=== PATIENT | female | born 1995 | race African-American/Black ===

== ENCOUNTER 2016-07-27 15:21 | Emergency (ER) | payer MEDICAID, OTHER ==
[~2016-07-27] VITALS: Ht 167.6 cm; Wt 140.0 kg
[~2016-07-27 15:21] MED LIST: BEN25 PO
[2016-07-27 15:25] VITALS: Ht 167.6 cm; Wt 140.0 kg
[2016-07-27] MEDS ORDERED: ONDANSETRON 4 MG INJ IV STA (16:36)
[2016-07-27] MEDS ORDERED: SOD CHLORIDE 0.9% 1,000 ML IV STA (16:36)
[2016-07-27 17:08] LABS: ADD UMIC NO; URINE BILIRUBIN (Dip) NEGATIVE (NEGATIVE); URINE BLOOD (Dip) NEGATIVE (NEGATIVE); URINE COLOR LT. YELLOW (YELLOW); URINE GLUCOSE (Dip) NEGATIVE (NEGATIVE); URINE KETONES (Dip) NEGATIVE (NEGATIVE); URINE LEUKOCYTE ESTERASE (Dip) NEGATIVE (NEGATIVE); URINE NITRITE (Dip) NEGATIVE (NEGATIVE); URINE TOTAL PROTEIN (Dip) NEGATIVE (NEGATIVE); URINE UROBILINOGEN (Dip) 0.2 E.U./dL (0.1-1.0)
[2016-07-27 17:09] LABS: BASOPHILS % 0.3 % (0.0-2.0); EOSINOPHILS % 0.4 % (0.0-7.0); HEMATOCRIT 37.1 % (37.0-47.0); HEMOGLOBIN 12.2 g/dl (12.0-16.0); LYMPHOCYTES # 1.7 10^3/ul (0.8-2.9); LYMPHOCYTES % 22.5 % (15.0-51.0); MEAN CORPUSCULAR HEMOGLOBIN 27.2 pg (29.0-33.0); MEAN CORPUSCULAR HGB CONC 32.8 g/dl (32.0-37.0); MEAN CORPUSCULAR VOLUME 82.8 fl (82.0-101.0); MONOCYTE # 0.5 10^3/ul (0.3-0.9); MONOCYTES % 6.5 % (0.0-11.0); NEUTROPHIL # 5.3 10^3/ul (1.6-7.5); NEUTROPHILS % 70.3 % (39.0-77.0); PLATELET COUNT 294 10^3/UL (140-440); RED BLOOD COUNT 4.49 10^6/ul (4.20-5.40); UNCORRECTED WBC 7.6 10^3/ul (4.8-10.8); WHITE BLOOD COUNT 7.6 10^3/ul (4.8-10.8)
[2016-07-27 17:10] LABS: CONDITION 1
[2016-07-27 17:11] LABS: ALBUMIN 3.8 g/dl (3.3-4.9)
[2016-07-27 17:12] LABS: POTASSIUM 4.4 mmol/L (3.5-5.1)
[2016-07-27 17:14] LABS: ALBUMIN/GLOBULIN RATIO 1.05; BILIRUBIN,INDIRECT 0.1 mg/dl (0-1.1); BILIRUBIN,TOTAL 0.1 mg/dl (0.2-1.3); CREATININE 0.75 mg/dl (0.44-1.00); TOTAL PROTEIN 7.4 g/dl (6.1-8.1)
[2016-07-27 17:15] LABS: CALCIUM 9.1 mg/dl (8.4-10.2)
--- NOTE | 2016-07-27 17:55 | RADRPT ---
PROCEDURE: CT abdomen and pelvis without contrast. CLINICAL INDICATION: Right abdominal pain, nausea TECHNIQUE: CT scan of the abdomen and pelvis without contrast was performed. The patient was scan koffi without intravenous contrast. 3-D coronal reformatted images were obtained from the axial [facility] images. The calculated radiation dose measures 1302 mGy centimeters. The CTDI measures 24 mGy COMPARISON: None. FINDINGS: CT abdomen: Limited images through the lung bases appear clear. The liver is normal in size and density, without intrahepatic biliary dilatation. The spleen and p ancreas are unremarkable noncontrast appearance. The gallbladder appears within normal limits. The adrenal glands are symmetric and normal. The kidneys appear normal in size and contour. No renal calculus or hydronephrosis is visualized. There is no ascites or retroperitoneal lymphadenopathy. Visualized bowel loops appear within normal limits. The appendix appears normal. CT pelvis: The urinary bladder appears normal. The pelvic organs are within normal limits. There is no abnorm al pelvic mass or adenopathy. There is no pelvic free fluid. Visualized osseous structures appear unremarkable. IMPRESSION: Unremarkable noncontrast CT scan of the abdomen and pelvis. No renal calculi or hydronephrosis. The appendix is seen and appears within normal limits. RPTAT: HH .Landen Chung MD, MD Date Time Electronically viewed and signed by .Landen Chung MD, on 07/27/2016 17:54 .T/
[2016-07-27] MEDS ORDERED: CIPR500T4 PO (18:04)
--- NOTE | 2016-07-27 18:20 | ERD ---
ER Documentation Chief Complaint Date/Time DATE: 07/27/16 TIME: 18:17 Chief Complaint RT SIDE ABD PAIN WITH NAUSEA ,VOMITING WITH DIARRHEA X 2 DAYS HPI This is a 21-year-old female presents to the ER with diarrhea that started yesterday. Patient states that she had one episode of nonbilious nonbloody vomiting yesterday. She denies any vomiting today. Patient states that yesterday she ate some tacos from a taco truck and she believes this is the reason for her diarrhea. Patient is also complaining of right lower quadrant pain. Right lower quadrant pain is intermittent and when it occurs it is severe. ROS 12 point review of systems was done, all negative except per HPI. Medications Home Meds Active Scripts Ciprofloxacin Hcl* (Ciprofloxacin Hcl*) 500 Mg Tablet, 500 MG PO BID for 3 Days , TAB Prov:JLUIS NAVARRETE 07/27/16 Diphenhydramine Hcl* (Benadryl*) 25 Mg Cap, 25 MG PO Q6 Y for ITCHING/RASH, #30 TAB Prov:ARYAN MORENO PA-C 04/04/16 Allergies Allergies: Coded Allergies: amoxicillin (Verified Allergy, Unknown, 04/04/16) PMhx/Soc History of Surgery: No Anesthesia Reaction: No Hx Neurological Disorder: No Hx Respiratory Disorders: No Hx Cardiac Disorders: No Hx Psychiatric Problems: No Hx Miscellaneous Medical Probl: No Hx Alcohol Use: Yes (socially) Hx Substance Use: No Hx Tobacco Use: Yes Smoking Status: Current some day smoker Physical Exam Vitals Vital Signs Date Time Temp Pulse Resp B/P Pulse Ox O2 Delivery O2 Flow Rate FiO2 07/27/16 15:25 98.0 87 18 134/86 100 Physical Exam GENERAL: The patient is well developed and appropriate for usual state of health , in no apparent distress. HEENT: Atraumatic. CHEST: Clear to auscultation bilaterally. There are no rales, wheezes or rhonchi. HEART: Regular rate and rhythm. No murmurs, clicks, rubs or gallops. ABDOMEN: Soft, nontender and nondistended. Good bowel sounds. No rebound or guarding. No gross peritonitis. No gross organomegaly or masses. ++mcburney point tendereness BACK: No midline or flank tenderness. EXTREMITIES: Full range of motion. Grossly neurovascularly intact. NEURO: Alert and oriented. Result Diagram: 07/27/16 1645 07/27/16 1645 Results 24 hrs Laboratory Tests Test 07/27/16 16:45 Alanine Aminotransferase (ALT/SGPT) 27IU/L Albumin 3.8g/dl Albumin/Globulin Ratio 1.05 Alkaline Phosphatase 75IU/L Anion Gap 18 Aspartate Amino Transf (AST/SGOT) 31IU/L Basophils # 0.010^3/ul Basophils % 0.3% Blood Morphology Comment Blood Urea Nitrogen 12mg/dl Calcium Level 9.1mg/dl Carbon Dioxide Level 27mmol/L Chloride Level 104mmol/L Creatinine 0.75mg/dl Direct Bilirubin 0.00mg/dl Eosinophils # 0.010^3/ul Eosinophils % 0.4% Globulin 3.60g/dl Glucose Level 81mg/dl Hematocrit 37.1% Hemoglobin 12.2g/dl Indirect Bilirubin 0.1mg/dl Lipase 233U/L Lymphocytes # 1.710^3/ul Lymphocytes % 22.5% Mean Corpuscular Hemoglobin 27.2pg Mean Corpuscular Hemoglobin Concent 32.8g/dl Mean Corpuscular Volume 82.8fl Mean Platelet Volume 8.0fl Monocytes # 0.510^3/ul Monocytes % 6.5% Neutrophils # 5.310^3/ul Neutrophils % 70.3% Nucleated Red Blood Cells # 0.010^3/ul Nucleated Red Blood Cells % 0.0/100WBC Platelet Count 01977^3/UL Potassium Level 4.4mmol/L Red Blood Count 4.4910^6/ul Red Cell Distribution Width 13.0% Sodium Level 145mmol/L Total Bilirubin 0.1mg/dl Total Protein 7.4g/dl Urine Bilirubin NEGATIVE Urine Clarity CLEAR Urine Color LT. YELLOW Urine Glucose NEGATIVE% Urine Hemoglobin NEGATIVE Urine Ketones NEGATIVE Urine Leukocyte Esterase NEGATIVE Urine Nitrite NEGATIVE Urine Specific [place] 1.015 Urine Total Protein NEGATIVE Urine Urobilinogen 0.2 E.U./dL Urine pH 7.5 White Blood Count 7.610^3/ul Current Medications Medications (Trade) Dose Ordered Sig/Archana Route PRN Reason Start Time Stop Time Status Last Admin Dose Admin Sodium Chloride (NS) 1,000 ml @ 1,000 mls/hr Q1H STAT IV 07/27/16 16:36 07/27/16 17:35 DC 07/27/16 16:58 Ondansetron HCl (Zofran Inj) 4 mg ONCE STAT IV 07/27/16 16:36 07/27/16 16:38 DC 07/27/16 16:57 Procedures/MDM This is a 29-year-old female presents to the ER with right lower quadrant pain, nausea vomiting and diarrhea for the last 2 days. This is likely bacterial gastroenteritis versus viral gastroenteritis. Patient did have tacos from a taco truck yesterday. Patient will be treated empirically for possible bacterial gastroenteritis secondary to food poisoning. Because patient was tender in the right lower quadrant on physical exam patient was worked up to rule out possible appendicitis. At this time patient diagnostic examinations are all normal. Patient is afebrile and well-appearing. She will be sent home with Sam. She is to follow-up with her primary care doctor within 1-2 days or return to ER sooner if symptoms worsen. My medical decision making shared with the patient and her mother they understand and agree with plan. Departure Diagnosis: Primary Impression: Vomiting and diarrhea Condition: Stable Patient Instructions: Self-Care for Vomiting and Diarrhea Additional Instructions: Call your primary care doctor TOMORROW for an appointment during the next 1-2 days.See the doctor sooner or return here if your condition worsens before your appointment time. JLUIS NAVARRETE Jul 27, 2016 18:20
[2016-07-27 18:25] VITALS: BP 141/99; PULSE 89; RESP 18; TEMP 98.6
== END 2016-07-27 18:26 | disposition home or self-care (01) ==
LOC: FTE 15:21
DX: R11.10 Vomiting, unspecified (principal); F17.210 Nicotine dependence, cigarettes, uncomplicated
CPT/HCPCS: 36415; 74176; 80053; 81003; 83690; 85025; 96374; J2405; J7030; Z7502

== ENCOUNTER 2016-07-31 18:20 | Emergency (ER) | payer OTHER ==
[~2016-07-31] VITALS: Wt 90.9 kg
[~2016-07-31 18:20] MED LIST changes: +CIPR500T4 PO
[2016-07-31] MEDS ORDERED: ONDANSETRON (ODT) 4 MG TAB ODT STA (19:36)
[2016-07-31] MEDS ORDERED: ONDA4TAB14 PO (19:41)
--- NOTE | 2016-07-31 19:46 | ERD ---
ER Documentation Chief Complaint Date/Time DATE: 07/31/16 TIME: 19:44 Chief Complaint seen here prior for n/v/d, teresa, chills, prescr Cipro, now diarrhea worse. HPI Patient was seen a few days ago for nausea vomiting diarrhea and abdominal pain. She had eaten some tacos prior to her symptoms and so it was thought it was food poisoning and she came here and was only prescribed Cipro. She continues to the nausea and vomiting but she is eating [employer]. Diarrhea is more formed now. No more fevers or chills no more abdominal pain. No recent travel. test 4 days ago was negative. Last menstrual period 2 weeks ago. ROS All systems reviewed and are negative except as per history of present illness. Medications Home Meds Active Scripts Ondansetron (Ondansetron Odt) 4 Mg Tab.rapdis, 4 MG PO Q6H Y for NAUSEA AND/OR VOMITING, #10 TAB Prov:FELISA FOUNTAIN DO 07/31/16 Ciprofloxacin Hcl* (Ciprofloxacin Hcl*) 500 Mg Tablet, 500 MG PO BID for 3 Days , TAB Prov:JLUIS NAVARRETE 07/27/16 Diphenhydramine Hcl* (Benadryl*) 25 Mg Cap, 25 MG PO Q6 Y for ITCHING/RASH, #30 TAB Prov:ARYAN MORENO PA-C 04/04/16 Allergies Allergies: Coded Allergies: amoxicillin (Verified Allergy, Unknown, 04/04/16) PMhx/Soc History of Surgery: No Anesthesia Reaction: No Hx Neurological Disorder: No Hx Respiratory Disorders: No Hx Cardiac Disorders: No Hx Psychiatric Problems: No Hx Miscellaneous Medical Probl: No Hx Alcohol Use: Yes (socially) Hx Substance Use: Yes (WEED) Hx Tobacco Use: Yes Smoking Status: Current every day smoker Physical Exam Vitals Vital Signs Date Time Temp Pulse Resp B/P Pulse Ox O2 Delivery O2 Flow Rate FiO2 07/31/16 18:21 99.7 103 20 119/61 100 Physical Exam Const: [Alert oriented 4, well-nourished well-developed nontoxic- appearing no apparent distress, interacts appropriately] obese nontoxic appearing Head: [Normocephalic/atraumatic, no scalp lesions] Eyes: [Normal Conjunctiva, PERRLA, EOMI no conjunctival injection no conjunctival discharge] ENT: [Normal External Ears, Nose and Mouth, no tonsillar exudates no tonsillar erythema no tonsillar edema oropharynx no erythema. bilateral ear canals are patent, bilateral tympanic membranes nonerythematous.] Neck: [Full range of motion. No meningismus. No cervical lymphadenopathy] Resp: [Clear to auscultation bilaterally, no wheezes rhonchi or rales, breathing normally, no tachypnea no nasal flaring no grunting no accessory muscle use no retractions] Cardio: [Regular rate and rhythm, no murmurs] Abd: [Soft, non tender, non distended. Normal bowel sounds, no rebound rigidity or guarding. Normoactive bowel sounds no flank tenderness, negative McBurney's negative Menjivar sign.] Skin: [No petechiae or rashes, no hives no urticaria no abscess no laceration no new warmth] Back: [No midline or flank tenderness, full range of motion without pain ] Ext: [No cyanosis, clubbing or edema] Neuro: M/S: Alert and oriented 4. Face: EOMI, face and pharynx with normal sensation and function Motor: Normal strength throughout, muscle strength is 5 out of 5 bilateral upper extremity and bilateral lower extremity Sensation: Normal sensation throughout Speech: Normal Cerebel: Normal coordination Normal gait DTR: 2+ and symmetric upper/lower extremities Psych: [Normal Mood and Affect, no suicidal ideation or homicide ideation] Results 24 hrs Current Medications Medications (Trade) Dose Ordered Sig/Archana Route PRN Reason Start Time Stop Time Status Last Admin Dose Admin Ondansetron HCl (Zofran Odt) 8 mg ONCE STAT ODT 07/31/16 19:36 07/31/16 19:38 DC 07/31/16 19:42 Procedures/MDM This is likely a viral gastroenteritis. She has nonbloody emesis she has no more fevers no more abdominal pain so I would recommend to stop the Cipro. Her diarrhea has improved. However she had no medications for her nausea so we will give her Zofran today and Zofran for home. Otherwise supportive care. Differential includes viral or bacterial gastroenteritis or food poisoning or ileus or small bowel obstruction or less likely UTI or pyelonephritis or appendicitis or cholangitis or cholecystitis. Departure Diagnosis: Primary Impression: Nausea and vomiting in adult Condition: Stable Patient Instructions: Nausea and Vomiting-Adult, Gastroenteritis, Viral (6Y- Adult) Additional Instructions: FELISA Bazan DO Jul 31, 2016 19:46
== END 2016-07-31 19:50 | disposition home or self-care (01) ==
LOC: FTE 18:20
DX: R11.2 Nausea with vomiting, unspecified (principal); F17.210 Nicotine dependence, cigarettes, uncomplicated
CPT/HCPCS: Z7502; Z7610; 99283

== ENCOUNTER 2016-08-02 19:17 | Emergency (ER) | payer BC, OTHER ==
[~2016-08-02] VITALS: Ht 167.6 cm; Wt 138.0 kg
[~2016-08-02 19:17] MED LIST changes: +ONDA4TAB14 PO
[2016-08-02 19:38] VITALS: Ht 167.6 cm; Wt 138.0 kg
[2016-08-02] MEDS ORDERED: PRED20TA PO (21:42)
[2016-08-02] MEDS ORDERED: BEN25 PO (21:43)
[2016-08-02] MEDS ORDERED: FAMO-18 PO (21:43)
[2016-08-02] MEDS ORDERED: HC30CR25 TOP (21:44)
--- NOTE | 2016-08-02 21:48 | ERD ---
ER Documentation Chief Complaint Date/Time DATE: 08/02/16 TIME: 21:45 Chief Complaint HIVES X 1 DAY ASSOCIATED WITH SOB AND UTICARIA; SPO2 100% ON RA. HPI Patient is a 21-year-old female who presents the ED with rash 1 day. She states that it is itchy. Denies pain or drainage. Denies fever or chills. Denies abdominal pain, nausea, vomiting or diarrhea. Denies headache or dizziness. Denies shortness of breath, lip swelling, tongue swelling or difficulty swallowing. Denies chest pain, shortness of breath or difficulty breathing. She states that the rash is located on her arms abdomen back and legs. She has taken Benadryl today which has helped with the rash. She states that her rash is much better than it was this morning. She denies recent travel , change in hygiene products. ROS All systems reviewed and are negative except as per history of present illness. Medications Home Meds Active Scripts Hydrocortisone* Topical (Hydrocortisone* Topical) 2.5%-28.3 Gm Cream..g., 1 APPLIC TOP BID, #1 TUB Prov:ANASTASIA BUSH PA-C 08/02/16 Famotidine* (Pepcid*) 20 Mg Tablet, 20 MG PO BID for 14 Days, TAB Prov:ANASTASIA BUSH PA-C 08/02/16 Diphenhydramine Hcl* (Benadryl*) 25 Mg Cap, 25 MG PO Q6, #30 CAP Prov:ANASTASIA BUSH PA-C 08/02/16 Prednisone* (Prednisone*) 20 Mg Tab, 40 MG PO DAILY for 4 Days, TAB Prov:ANASTASIA BUSH PA-C 08/02/16 Ondansetron (Ondansetron Odt) 4 Mg Tab.rapdis, 4 MG PO Q6H Y for NAUSEA AND/OR VOMITING, #10 TAB Prov:FELISA FOUNTAIN DO 07/31/16 Ciprofloxacin Hcl* (Ciprofloxacin Hcl*) 500 Mg Tablet, 500 MG PO BID for 3 Days , TAB Prov:JLUIS NAVARRETE 07/27/16 Diphenhydramine Hcl* (Benadryl*) 25 Mg Cap, 25 MG PO Q6 Y for ITCHING/RASH, #30 TAB Prov:ARYAN MORENO PA-C 04/04/16 Allergies Allergies: Coded Allergies: amoxicillin (Verified Allergy, Unknown, 04/04/16) PMhx/Soc Medical and Surgical Hx: pt denies Surgical Hx History of Surgery: No Anesthesia Reaction: No Hx Neurological Disorder: No Hx Respiratory Disorders: Yes (strep throat) Hx Cardiac Disorders: No Hx Psychiatric Problems: No Hx Miscellaneous Medical Probl: No Hx Alcohol Use: Yes (socially) Hx Substance Use: Yes (marijuana) Hx Tobacco Use: Yes Smoking Status: Current every day smoker Physical Exam Vitals Vital Signs Date Time Temp Pulse Resp B/P Pulse Ox O2 Delivery O2 Flow Rate FiO2 08/02/16 19:38 98.6 88 18 156/80 100 Physical Exam GENERAL: Well-developed, well-nourished female. Appears in no acute distress. HEAD: Normocephalic, atraumatic. NECK: Supple. No lymphadenopathy or thyromegaly. No meningismus. negative kernig. negative brudinski. LUNG: Clear to auscultation bilaterally. No rhonchi, wheezing, rales or coarse breath sounds. HEART: Regular rate and rhythm. No murmurs, rubs or gallops. ABDOMEN: No scars, ecchymosis or noted. Soft, nontender, and nondistended. Positive bowel sounds in all four quadrants. No rebound tenderness, no guarding. (-) McBurneys point tenderness. No CVA tenderness. erythematous wheals on abdomen, arms, legs and back. no drainage. no signs of infection. BACK: No midline tenderness. Extremities: Equal pulses bilaterally. No peripheral clubbing, cyanosis or edema. No unilateral leg swelling. NEUROLOGIC: Alert and oriented. Moving all four extremities. 5/5 strength in all extremities. Normal speech. Steady gait. SKIN: Normal color. Warm and dry. No rashes or lesions. Capillary refill < 2 seconds Procedures/MDM ER COURSE: I kept the patient and/or family informed of laboratory and diagnostic imaging results throughout the emergency room course. MEDICAL DECISION MAKING: This is a 21-year-old Female who presents with rash. Vital signs were reviewed. Patient is afebrile. Patient is not hypoxic. Patient likely has urticaria. Low suspicion for necrotizing fasciitis, SJS, toxic epidermal necrolysis, Kawasaki, erythema multiforme, gangrene, scarlet fever, meningococcemia, sepsis , anaphylaxis. Low suspicion for pneumonia, PE, pneumothorax, ACS, epiglottitis , obstruction, TB, pertussis, meningitis, sepsis, angioedema DISCHARGE: At this time, patient is stable for discharge and outpatient management with no new complaints during the ER course. Patient was sent home with prednisone, Benadryl, Pepcid and hydrocortisone cream. Patient will be discharged home with instructions to recheck for new or worsening symptoms such as fever, nausea, weakness, LOC and to follow up with primary care in the next 1-2 days. Patient was advised to return to the ER for any new or worsening symptoms. Plan was discussed and patient and/or family understands and agrees. Home instructions were given. Departure Diagnosis: Primary Impression: Rash Condition: Stable Patient Instructions: When Your Child Has Hives (Urticaria) or Angioedema Additional Instructions: Call your primary care doctor TOMORROW for an appointment during the next 1-2 days.See the doctor sooner or return here if your condition worsens before your appointment time. ANASTASIA BUSH PA-C Aug 02, 2016 21:48
[2016-08-02 22:00] VITALS: BP 156/81; PULSE 78; RESP 18; TEMP 98.6
== END 2016-08-02 22:00 | disposition home or self-care (01) ==
LOC: FTE 19:17
DX: R21 Rash and other nonspecific skin eruption (principal); F17.210 Nicotine dependence, cigarettes, uncomplicated
CPT/HCPCS: 99283

== ENCOUNTER 2016-09-09 13:06 | Emergency (ER) | payer BC, OTHER ==
[~2016-09-09] VITALS: Ht 170.2 cm; Wt 136.0 kg
[~2016-09-09 13:06] MED LIST changes: +FAMO-18 PO; +HC30CR25 TOP; +PRED20TA PO
[2016-09-09 13:17] VITALS: Ht 170.2 cm; Wt 136.0 kg
[2016-09-09 14:58] LABS: ADD UMIC YES; URINE BILIRUBIN (Dip) NEGATIVE (NEGATIVE); URINE BLOOD (Dip) 1+ (NEGATIVE); URINE COLOR LT. YELLOW (YELLOW); URINE GLUCOSE (Dip) NEGATIVE (NEGATIVE); URINE KETONES (Dip) NEGATIVE (NEGATIVE); URINE LEUKOCYTE ESTERASE (Dip) NEGATIVE (NEGATIVE); URINE NITRITE (Dip) NEGATIVE (NEGATIVE); URINE TOTAL PROTEIN (Dip) NEGATIVE (NEGATIVE); URINE UROBILINOGEN (Dip) 0.2 E.U./dL (0.1-1.0)
[2016-09-09 15:08] LABS: ADD SCAN DIFF NO
[2016-09-09 15:08] LABS: BACTERIA,URINE FEW
[2016-09-09 15:11] LABS: BASOPHILS % 0.3 % (0.0-2.0); EOSINOPHILS % 0.3 % (0.0-7.0); HEMATOCRIT 36.4 % (37.0-47.0); HEMOGLOBIN 11.3 g/dl (12.0-16.0); LYMPHOCYTES # 1.9 10^3/ul (0.8-2.9); LYMPHOCYTES % 27.6 % (15.0-51.0); MEAN CORPUSCULAR HEMOGLOBIN 26.7 pg (29.0-33.0); MEAN CORPUSCULAR VOLUME 86.1 fl (82.0-101.0); MEAN PLATELET VOLUME 9.6 fl (7.4-10.4); MONOCYTE # 0.4 10^3/ul (0.3-0.9); MONOCYTES % 5.1 % (0.0-11.0); NEUTROPHIL # 4.5 10^3/ul (1.6-7.5); NEUTROPHILS % 66.4 % (39.0-77.0); PLATELET COUNT 267 10^3/UL (140-415); RED BLOOD COUNT 4.23 10^6/ul (4.20-5.40); RED CELL DISTRIBUTION WIDTH 13.3 % (11.5-14.5); WHITE BLOOD COUNT 6.8 10^3/ul (4.8-10.8)
--- NOTE | 2016-09-09 16:26 | RADRPT ---
PROCEDURE: US OB. CLINICAL INDICATION: Vaginal bleeding in a 21-year-old female. TECHNIQUE: Transabdominal and transvaginal views of the pelvis are available for review. COMPARISON: No. FINDINGS: A 0.7 x 0.3 x 0.5 cm fluid collection is noted in the endometrial cavity which could be the result o f a small gestational sac or decidual reaction. The right ovary measures 3.4 x 1.9 x 2.7 cm in as normal blood flow on Doppler imaging. The left ovary measures 2.7 x 2 x 2 cm and as normal blood flow on Doppler imaging. There is trace fluid in the cul-de-sac. IMPRESSION: 1. When no definite IUP is demonstrated, correlation with serial beta HCG is recommended. With a quantitative beta HCG >2000, the differential diagnosis includes spontaneous or ecto pic . Therefore, clinical follow-up is recommended including correlation with serial quant itative beta HCG levels and repeat sonogram with rising levels and/or/or localized or persistent maren n. With quantitative beta HCG < 2000, the differential diagnosis includes early normal IVP or spontaneo us or ectopic . Therefore, clinical follow-up is recommended including correlatio n with serial quantitative beta HCG levels and arising levels and / or persistent pain. 2. The differential diagnosis includes a normal early intrauterine gestation versus decidual reacti on associated with ectopic . An incomplete might present this fashion. I would rec ommend follow up imaging and 1-2 weeks. 3. Trace fluid in the cul-de-sac with no abnormal adnexal mass identified. RPTAT:AAJJ Physician Ximena Date Time Electronically viewed and signed by Physician Ximena on 09/09/2016 16:25 PETERSON/
--- NOTE | 2016-09-09 17:28 | ERD ---
ER Documentation Chief Complaint Date/Time DATE: 09/09/16 TIME: 17:21 Chief Complaint ABD PAIN TOADY , POSTIVE PREG TEST AT HOME , LMP 08/06/16 HPI This is a 21-year-old female presents to the ER with pelvic cramping that started today. Patient states that she took a test at home and that was positive. Her last normal menstrual period was on August 06, 2016. Patient denies any vaginal bleeding. She denies any urinary frequency or dysuria. She denies any vaginal discharge. A0. ROS 12 point review of systems was done, all negative except per HPI. Medications Home Meds Active Scripts Hydrocortisone* Topical (Hydrocortisone* Topical) 2.5%-28.3 Gm Cream..g., 1 APPLIC TOP BID, #1 TUB Prov:ANASTASIA BUSH PA-C 08/02/16 Famotidine* (Pepcid*) 20 Mg Tablet, 20 MG PO BID for 14 Days, TAB Prov:ANASTASIA BUSH PA-C 08/02/16 Diphenhydramine Hcl* (Benadryl*) 25 Mg Cap, 25 MG PO Q6, #30 CAP Prov:ANASTASIA BUSH PA-C 08/02/16 Prednisone* (Prednisone*) 20 Mg Tab, 40 MG PO DAILY for 4 Days, TAB Prov:ANASTASIA BUSH PA-C 08/02/16 Ondansetron (Ondansetron Odt) 4 Mg Tab.rapdis, 4 MG PO Q6H Y for NAUSEA AND/OR VOMITING, #10 TAB Prov:FELISA FOUNTAIN DO 07/31/16 Ciprofloxacin Hcl* (Ciprofloxacin Hcl*) 500 Mg Tablet, 500 MG PO BID for 3 Days , TAB Prov:JLUIS NAVARRETE 07/27/16 Diphenhydramine Hcl* (Benadryl*) 25 Mg Cap, 25 MG PO Q6 Y for ITCHING/RASH, #30 TAB Prov:ARYAN MORENO PA-C 04/04/16 Allergies Allergies: Coded Allergies: amoxicillin (Verified Allergy, Unknown, 04/04/16) PMhx/Soc Medical and Surgical Hx: pt denies Medical Hx, pt denies Surgical Hx History of Surgery: No Anesthesia Reaction: No Hx Neurological Disorder: No Hx Respiratory Disorders: Yes (strep throat) Hx Cardiac Disorders: No Hx Psychiatric Problems: No Hx Miscellaneous Medical Probl: No Hx Alcohol Use: Yes (socially) Hx Substance Use: Yes (marijuana) Hx Tobacco Use: No (quit) Smoking Status: Former smoker Physical Exam Vitals Vital Signs Date Time Temp Pulse Resp B/P Pulse Ox O2 Delivery O2 Flow Rate FiO2 09/09/16 13:17 97.2 86 18 131/65 100 Physical Exam GENERAL: The patient is well developed and appropriate for usual state of health , in no apparent distress. HEENT: Atraumatic. CHEST: Clear to auscultation bilaterally. There are no rales, wheezes or rhonchi. HEART: Regular rate and rhythm. No murmurs, clicks, rubs or gallops. ABDOMEN: Soft, nontender and nondistended. Good bowel sounds. No rebound or guarding. No gross peritonitis. No gross organomegaly or masses. No Menjivar sign or McBurney point tenderness. BACK: No midline or flank tenderness. NEURO: Alert and oriented Result Diagram: 09/09/16 1447 Results 24 hrs Laboratory Tests Test 09/09/16 14:42 09/09/16 14:47 Urine Bacteria FEW Urine Bilirubin NEGATIVE Urine Clarity CLEAR Urine Color LT. YELLOW Urine Epithelial Cells FEW Urine Glucose NEGATIVE% Urine Hemoglobin 1+ Urine Ketones NEGATIVE Urine Leukocyte Esterase NEGATIVE Urine Microscopic RBC 2-5/HPF Urine Microscopic WBC 2-5/HPF Urine Nitrite NEGATIVE Urine Specific [place] 1.020 Urine Total Protein NEGATIVE Urine Urobilinogen 0.2 E.U./dL Urine pH 6.0 Basophils # 0.010^3/ul Basophils % 0.3% Beta HCG, Quantitative 3135.3mIU/ml Eosinophils # 0.010^3/ul Eosinophils % 0.3% Hematocrit 36.4% Hemoglobin 11.3g/dl Lymphocytes # 1.910^3/ul Lymphocytes % 27.6% Mean Corpuscular Hemoglobin 26.7pg Mean Corpuscular Hemoglobin Concent 31.0g/dl Mean Corpuscular Volume 86.1fl Mean Platelet Volume 9.6fl Monocytes # 0.410^3/ul Monocytes % 5.1% Neutrophils # 4.510^3/ul Neutrophils % 66.4% Nucleated Red Blood Cells # 0.010^3/ul Nucleated Red Blood Cells % 0.0/100WBC Platelet Count 23704^3/UL Red Blood Count 4.2310^6/ul Red Cell Distribution Width 13.3% White Blood Count 6.810^3/ul Procedures/MDM Differential diagnosis: Threatened , missed , incomplete , ectopic , molar , UTI, pyelonephritis. At this time patient does have a positive urine test and her quantitative HCG was 3153. No definite evidence of an intrauterine on the ultrasound. I discussed his case with glabrous on-call Dr. More, and at this time this is probably due to very early . Patient however needs to return to ER in 48 hours for recheck as ectopic cannot be completely ruled out. Patient my medical decision making with the patient she understands the plan. Departure Diagnosis: Primary Impression: Pelvic pain during Condition: Stable Patient Instructions: , New Dx Additional Instructions: Return to this facility in 2 DAYS for a follow-up exam.Return sooner if your condition worsens. JLUIS NAVARRETE Sep 09, 2016 17:27
== END 2016-09-09 17:33 | disposition home or self-care (01) ==
LOC: FTE 13:06
DX: O26.899 Other specified pregnancy related conditions, unspecified trimester (principal); R10.2 Pelvic and perineal pain; Z3A.00 Weeks of gestation of pregnancy not specified; Z87.891 Personal history of nicotine dependence
CPT/HCPCS: 36415; 76801; 76817; 81001; 81003; 84702; 85025; 86900; 86901

== ENCOUNTER 2016-09-11 19:30 | Emergency (ER) | payer BC, OTHER ==
[~2016-09-11] VITALS: Ht 170.2 cm; Wt 137.8 kg
[2016-09-11 19:41] VITALS: Ht 170.2 cm; Wt 137.8 kg
== END 2016-09-11 21:07 | disposition left against medical advice (07) ==
LOC: FTE 19:30
DX: Z53.21 Procedure and treatment not carried out due to patient leaving prior to being seen by health care provider (principal)

== ENCOUNTER 2016-09-13 18:44 | Emergency (ER) | payer BC, OTHER ==
[~2016-09-13] VITALS: Ht 170.2 cm; Wt 139.1 kg
[2016-09-13 19:23] VITALS: Ht 170.2 cm; Wt 139.1 kg
[2016-09-13] MEDS ORDERED: ACETAMINOPHEN 325 MG TAB PO STA (19:58)
[2016-09-13 20:19] LABS: ADD SCAN DIFF NO
[2016-09-13 20:27] LABS: BASOPHILS % 0.4 % (0.0-2.0); EOSINOPHILS % 0.5 % (0.0-7.0); HEMATOCRIT 38.3 % (37.0-47.0); HEMOGLOBIN 11.8 g/dl (12.0-16.0); LYMPHOCYTES # 2.5 10^3/ul (0.8-2.9); LYMPHOCYTES % 29.5 % (15.0-51.0); MEAN CORPUSCULAR HEMOGLOBIN 26.6 pg (29.0-33.0); MEAN CORPUSCULAR HGB CONC 30.8 g/dl (32.0-37.0); MEAN CORPUSCULAR VOLUME 86.3 fl (82.0-101.0); MEAN PLATELET VOLUME 9.5 fl (7.4-10.4); MONOCYTE # 0.3 10^3/ul (0.3-0.9); MONOCYTES % 3.4 % (0.0-11.0); NEUTROPHIL # 5.5 10^3/ul (1.6-7.5); NEUTROPHILS % 65.8 % (39.0-77.0); PLATELET COUNT 278 10^3/UL (140-415); RED BLOOD COUNT 4.44 10^6/ul (4.20-5.40); RED CELL DISTRIBUTION WIDTH 13.1 % (11.5-14.5); WHITE BLOOD COUNT 8.4 10^3/ul (4.8-10.8)
--- NOTE | 2016-09-13 20:37 | RADRPT ---
PROCEDURE: OB Ultrasound. CLINICAL INDICATION: Positive test. TECHNIQUE: Ultrasound of the pelvis was performed with transabdominal and transvaginal sonography in the axial and sagittal planes. COMPARISON: No prior study is available for comparison. FINDINGS: There is a single intrauterine gestational sac. pole is not visualized. Yolk sac is present. Mean sac diameter is 0.95 cm. Menstrual age by ultrasound dates is 5 weeks 3 days. This indicates an expected date of delivery of 05/13/2017. The right ovary is not visualized. The left ovary appears normal measuring 4.0 x 2.2 x 2.5 cm. Color Doppler and pulsed Doppler sonography demonstrate normal flow to the left ovary. There is no other pelvic mass or free fluid. IMPRESSION: 1. Single intrauterine gestational sac with yolk sac present. pole not visualized. Follow-u p ultrasound in 10-12 days is advised. 2. Menstrual age by ultrasound dates is 5 weeks 3 days. 3. Right ovary not visualized. 4. Otherwise unremarkable study. The at RPTAT: QQ .Jag Vargas MD, Date Time Electronically viewed and signed by .Jag Vargas MD, on 09/13/2016 20:37 .R/
[2016-09-13 21:14] LABS: ADD UMIC YES; URINE BILIRUBIN (Dip) NEGATIVE (NEGATIVE); URINE BLOOD (Dip) TRACE (NEGATIVE); URINE COLOR LT. YELLOW (YELLOW); URINE GLUCOSE (Dip) NEGATIVE (NEGATIVE); URINE KETONES (Dip) NEGATIVE (NEGATIVE); URINE LEUKOCYTE ESTERASE (Dip) NEGATIVE (NEGATIVE); URINE NITRITE (Dip) NEGATIVE (NEGATIVE); URINE TOTAL PROTEIN (Dip) NEGATIVE (NEGATIVE); URINE UROBILINOGEN (Dip) 0.2 E.U./dL (0.1-1.0)
[2016-09-13 21:28] LABS: SQUAMOUS EPITHELIAL CELL,UR FEW; URINE RBCS 0-2 /HPF (0)
--- NOTE | 2016-09-13 21:40 | ERD ---
ER Documentation Chief Complaint Date/Time DATE: 09/13/16 Chief Complaint . Vaginal bleeding. HPI The patient is a 21-year-old female, A0, who presents to the Emergency Department with complaint of vaginal bleeding. The patient reports that her last menstrual period was 08/06/2016, and she believes that she is approximately 5 weeks . She states that this morning, after using the restroom, she wiped, and noted a small amount of vaginal spotting on the toilet paper. Since, she has continued to have mild spotting, but otherwise denies any heavy bleeding, or passage of any clots or tissue. She has not yet seen an [facility], and therefore she presents to the ED for evaluation . She denies any pelvic pain or cramping. Denies nausea or vomiting. Denies fevers or chills. She notes that was seen in the ED recently for cramping, though was not having any bleeding at that time. Denies any vaginal discharge. ROS All systems reviewed and are negative except as per history of present illness. Medications Home Meds Active Scripts Multivit/Min/Fol Ac/Iron/Pren* ( S*) 1 Tab Tab, 1 TAB PO DAILY, #30 TAB Prov:WOODROW SANZ PA-C 09/13/16 Hydrocortisone* Topical (Hydrocortisone* Topical) 2.5%-28.3 Gm Cream..g., 1 APPLIC TOP BID, #1 TUB Prov:ANASTASIA BUSH PA-C 08/02/16 Famotidine* (Pepcid*) 20 Mg Tablet, 20 MG PO BID for 14 Days, TAB Prov:ANASTASIA BUSH PA-C 08/02/16 Diphenhydramine Hcl* (Benadryl*) 25 Mg Cap, 25 MG PO Q6, #30 CAP Prov:ANASTASIA BUSH PA-C 08/02/16 Prednisone* (Prednisone*) 20 Mg Tab, 40 MG PO DAILY for 4 Days, TAB Prov:ANASTASIA BUSH PA-C 08/02/16 Ondansetron (Ondansetron Odt) 4 Mg Tab.rapdis, 4 MG PO Q6H Y for NAUSEA AND/OR VOMITING, #10 TAB Prov:FELISA FOUNTAIN DO 1/15/17 Ciprofloxacin Hcl* (Ciprofloxacin Hcl*) 500 Mg Tablet, 500 MG PO BID for 3 Days , TAB Prov:JLUIS NAVARRETE 07/27/16 Diphenhydramine Hcl* (Benadryl*) 25 Mg Cap, 25 MG PO Q6 Y for ITCHING/RASH, #30 TAB Prov:ARYAN MORENO SUSAN 04/04/16 Allergies Allergies: Coded Allergies: amoxicillin (Verified Allergy, Unknown, 04/04/16) PMhx/Soc History of Surgery: No Anesthesia Reaction: No Hx Neurological Disorder: No Hx Respiratory Disorders: Yes (strep throat) Hx Cardiac Disorders: No Hx Psychiatric Problems: No Hx Miscellaneous Medical Probl: No Hx Alcohol Use: Yes (socially) Hx Substance Use: Yes (marijuana) Hx Tobacco Use: No (quit) Physical Exam Vitals Vital Signs Date Time Temp Pulse Resp B/P Pulse Ox O2 Delivery O2 Flow Rate FiO2 09/13/16 22:00 97.5 82 19 135/81 100 Room Air 09/13/16 19:23 99.1 78 16 131/81 99 Physical Exam GENERAL: Well-developed, well-nourished, in no acute distress HEENT: Head is normocephalic, atraumatic. No scleral pallor or icterus. Moist mucous membranes. NECK: Full range of motion. RESPIRATORY: Lungs are clear to auscultation bilaterally. Equal breath sounds. Normal expiratory effort. CARDIOVASCULAR: Regular rate and rhythm. S1 and S2 normal. GASTROINTESTINAL: Abdomen is soft, nontender, and nondistended. No guarding, no rebound tenderness. Positive bowel sounds. FLANK: No CVA tenderness, no mass or swelling. EXTREMITIES: No clubbing, cyanosis, or edema. Normal skin perfusion. Moving all extremities Muscle tone is normal. No focal swelling or erythema. Distal pulses are palpable, 2+ bilaterally. Capillary refill is less than 2 seconds. NEUROLOGIC: The patient is alert, awake, and oriented x 3. No focal neurologic deficits. Speech is normal. INTEGUMENT: Skin is clean, dry and intact. No rashes, lesions or petechiae present. Normal turgor. PSYCHIATRIC: Appropriate; Cooperative. Result Diagram: 09/13/162010 Results 24 hrs Laboratory Tests Test 09/13/16 20:11 09/13/16 20:51 Basophils # 0.010^3/ul Basophils % 0.4% Beta HCG, Quantitative 10614.0mIU/ml Eosinophils # 0.010^3/ul Eosinophils % 0.5% Hematocrit 38.3% Hemoglobin 11.8g/dl Lymphocytes # 2.510^3/ul Lymphocytes % 29.5% Mean Corpuscular Hemoglobin 26.6pg Mean Corpuscular Hemoglobin Concent 30.8g/dl Mean Corpuscular Volume 86.3fl Mean Platelet Volume 9.5fl Monocytes # 0.310^3/ul Monocytes % 3.4% Neutrophils # 5.510^3/ul Neutrophils % 65.8% Nucleated Red Blood Cells # 0.010^3/ul Nucleated Red Blood Cells % 0.0/100WBC Platelet Count 77137^3/UL Red Blood Count 4.4410^6/ul Red Cell Distribution Width 13.1% White Blood Count 8.410^3/ul Urine Bilirubin NEGATIVE Urine Clarity CLEAR Urine Color LT. YELLOW Urine Glucose NEGATIVE% Urine Hemoglobin TRACE Urine Ketones NEGATIVE Urine Leukocyte Esterase NEGATIVE Urine Microscopic RBC 0-2/HPF Urine Microscopic WBC 0-2/HPF Urine Nitrite NEGATIVE Urine Specific [place] >=1.030 Urine Squamous Epithelial Cells FEW Urine Total Protein NEGATIVE Urine Urobilinogen 0.2 E.U./dL Urine pH 5.5 Current Medications Medications (Trade) Dose Ordered Sig/Archana Route PRN Reason Start Time Stop Time Status Last Admin Dose Admin Acetaminophen (Tylenol Tab) 650 mg ONCE STAT PO 09/13/16 19:58 09/13/16 19:59 DC 09/13/16 20:31 Procedures/MDM DIAGNOSTIC TESTS AND INTERPRETATION: PROCEDURE: OB Ultrasound. CLINICAL INDICATION: Positive test. TECHNIQUE: Ultrasound of the pelvis was performed with transabdominal and transvaginal sonography in the axial and sagittal planes. COMPARISON: No prior study is available for comparison. FINDINGS: There is a single intrauterine gestational sac. pole is not visualized. Yolk sac is present. Mean sac diameter is 0.95 cm. Menstrual age by ultrasound dates is 5 weeks 3 days. This indicates an expected date of delivery of 05/13/2017. The right ovary is not visualized. The left ovary appears normal measuring 4.0 x 2.2 x 2.5 cm. Color Doppler and pulsed Doppler sonography demonstrate normal flow to the left ovary. There is no other pelvic mass or free fluid. IMPRESSION: 1. Single intrauterine gestational sac with yolk sac present. pole not visualized. Follow-up ultrasound in 10-12 days is advised. 2. Menstrual age by ultrasound dates is 5 weeks 3 days. 3. Right ovary not visualized. 4. Otherwise unremarkable study. The at .Jag Vargas MD, MD Date Time Electronically viewed and signed by .Jag Vargas MD, MD on 09/13/2016 20:37 EMERGENCY DEPARTMENT COURSE: The patient was stable throughout the ED course. Laboratory testing and ultrasound imaging was performed. The possibility of threatened vs. early vs. ectopic was discussed with the patient and she was told to follow up with her [facility] within 2-3 days for re-evaluation. The patient complies and agrees with plan. MEDICAL DECISION MAKING: This is a 21-year-old female presenting to the Emergency Department complaining of vaginal bleeding. She had no significant abnormalities noted on physical examination. Vital signs were stable. Differential diagnosis includes, but is not limited to, ectopic , cervicitis, fibroids, molar , implantation bleeding, heterotopic , septic , missed , incomplete , inevitable , threatened , complete , coagulopathy, fibroids, adenomyosis, endometriosis, neoplasia, vaginitis, PID, vaginal trauma , dysfunctional uterine bleeding. No significant abnormalities were noted on testing ordered. Beta hCG is 14,228. Rh (+), no indication for RhoGAM. Ultrasound imaging revealed a single intrauterine gestational sac with yolk sac present. pole not visualized. After rest, the patient reports no new complaints. Upon review and interpretation of the patient's presentation and overall ER course, I believe the patient's symptoms are most consistent with threatened vs. early . However, at this time, ectopic cannot be ruled out. The patient patient is in stable condition and therefore can be discharged home with strict return precautions for signs of deteriorating or worsening condition. The patient is advised to follow up with an [facility] PLASTERER within 2 -3 days for reevaluation and further management, or return to the ER sooner for any worsening symptoms. I shared all laboratory and diagnostic imaging studies with the patient at length and in great detail, and the patient verbally understands and agrees with the plan for further observation and care as an outpatient. At the time of discharge, all questions were answered. Departure Diagnosis: Primary Impression: Vaginal bleeding in patient at less than 20 weeks gestation Additional Impression: Threatened Condition: Stable Patient Instructions: Bleeding During Early , Possible Miscarriage ( Threatened ) Additional Instructions: Call your primary care doctor TOMORROW for an appointment during the next 2-3 days.See the doctor sooner or return here if your condition worsens before your appointment time. WOODROW SANZ PA-C Sep 13, 2016 21:40
[2016-09-13] MEDS ORDERED: PRENAT PO (21:41)
[2016-09-13 22:00] VITALS: BP 135/81; PULSE 82; RESP 19; TEMP 97.5
== END 2016-09-13 22:06 | disposition home or self-care (01) ==
LOC: FTE 18:44
DX: O20.0 Threatened abortion (principal); Z3A.01 Less than 8 weeks gestation of pregnancy; Z87.891 Personal history of nicotine dependence
CPT/HCPCS: 36415; 76801; 76817; 81001; 81003; 84702; 85025; 86900; 86901; 87086

== ENCOUNTER 2016-09-18 17:44 | Emergency (ER) | payer BC, OTHER ==
[~2016-09-18] VITALS: Ht 170.2 cm; Wt 139.0 kg
[~2016-09-18 17:44] MED LIST changes: +PRENAT PO
[2016-09-18 17:47] VITALS: Ht 170.2 cm; Wt 139.0 kg
[2016-09-18 19:44] LABS: ADD SCAN DIFF NO
--- NOTE | 2016-09-18 19:48 | RADRPT ---
PROCEDURE: US OB. CLINICAL INDICATION: . Vaginal bleeding. TECHNIQUE: Transabdominal and transvaginal imaging of the gravid uterus was performed. Images are reviewed on a high-resolution PACS workstation. COMPARISON: 09/13/2016. FINDINGS: Assigned due date is 05/05/2017. Estimated gestational age by assigned due date is 6 weeks 1 day. Intrauterine is identified. Gestational mean sac diameter measures 1.5 cm. The crown-rump length equals 0.34 cm. The estimated gestational age equals 6 weeks 1 day by ultrasound criteria. Normal cardiac activity is identified with heart rate of 93 bpm. No subchorionic hemorrhage is identified. The ovaries are unremarkable. IMPRESSION: 1. Single live intrauterine with an estimated gestational age of 6 weeks 1 day by ultraso und criteria and an estimated date of delivery of 05/05/2017. RPTAT: II .Rancho Jacobs MD, Date Time Electronically viewed and signed by .Rancho Jacobs MD, on 09/18/2016 19:48 .M/
[2016-09-18] MEDS ORDERED: PRENAT PO (19:59)
--- NOTE | 2016-09-18 20:02 | ERD ---
ER Documentation Chief Complaint Date/Time DATE: 09/18/16 TIME: 20:00 Chief Complaint SPOTTING SINCE YESTERDAY WITH CRAMPING , 6 WEEKS PREG (MARTIR ROLDAN MD) HPI This 21-year-old female presents with some vaginal spotting and slight cramping intermittently since yesterday. She is approximately 6 weeks by dates. She is a G1 para 0. She denies dysuria, fevers, vomiting. She has not received care visit yet. (MARTIR ROLDAN MD) ROS All systems reviewed and are negative except as per history of present illness. (MARTIR ROLDAN MD) Medications Home Meds Active Scripts Multivit/Min/Fol Ac/Iron/Pren* ( S*) 1 Tab Tab, 1 TAB PO DAILY, #100 TAB Prov:MARTIR ROLDAN MD 09/18/16 Multivit/Min/Fol Ac/Iron/Pren* ( S*) 1 Tab Tab, 1 TAB PO DAILY, #30 TAB Prov:WOODROW SANZ PA-C 09/13/16 Hydrocortisone* Topical (Hydrocortisone* Topical) 2.5%-28.3 Gm Cream..g., 1 APPLIC TOP BID, #1 TUB Prov:ANASTASIA BUSH PA-C 08/02/16 Famotidine* (Pepcid*) 20 Mg Tablet, 20 MG PO BID for 14 Days, TAB Prov:ANASTASIA BUSH PA-C 08/02/16 Diphenhydramine Hcl* (Benadryl*) 25 Mg Cap, 25 MG PO Q6, #30 CAP Prov:ANASTASIA BUSH PA-C 08/02/16 Prednisone* (Prednisone*) 20 Mg Tab, 40 MG PO DAILY for 4 Days, TAB Prov:ANASTASIA BUSH PA-C 08/02/16 Ondansetron (Ondansetron Odt) 4 Mg Tab.rapdis, 4 MG PO Q6H Y for NAUSEA AND/OR VOMITING, #10 TAB Prov:FELISA FOUNTAIN DO 07/31/16 Ciprofloxacin Hcl* (Ciprofloxacin Hcl*) 500 Mg Tablet, 500 MG PO BID for 3 Days , TAB Prov:JLUIS NAVARRETE 07/27/16 Diphenhydramine Hcl* (Benadryl*) 25 Mg Cap, 25 MG PO Q6 Y for ITCHING/RASH, #30 TAB Prov:ARYAN MORENO PA-C 04/04/16 Allergies Allergies: Coded Allergies: amoxicillin (Verified Allergy, Unknown, 04/04/16) PMhx/Soc Medical and Surgical Hx: pt denies Medical Hx, pt denies Surgical Hx History of Surgery: No Anesthesia Reaction: No Hx Neurological Disorder: No Hx Respiratory Disorders: No (strep throat) Hx Cardiac Disorders: No Hx Psychiatric Problems: No Hx Miscellaneous Medical Probl: No Hx Alcohol Use: No (socially) Hx Substance Use: No (marijuana) Hx Tobacco Use: No (quit) Smoking Status: Former smoker (MARTIR ROLDAN MD) Physical Exam Vitals Vital Signs Date Time Temp Pulse Resp B/P Pulse Ox O2 Delivery O2 Flow Rate FiO2 09/18/16 17:47 98.0 87 18 125/68 100 (CAYDEN PAIGE PA-C) Physical Exam Const: [] Alert, [id number]. Head: Atraumatic Eyes: Normal Conjunctiva ENT: Normal External Ears, Nose and Mouth. Neck: Full range of motion..~ No meningismus. Resp: Clear to auscultation bilaterally Cardio: Regular rate and rhythm, no murmurs Abd: Soft, non tender, non distended. Normal bowel sounds Skin: No petechiae or rashes Back: No midline or flank tenderness Ext: No cyanosis, or edema Neur: Awake and alert Psych: Normal Mood and Affect (MARTIR ROLDAN MD) Result Diagram: 09/18/16 1910 Results 24 hrs Laboratory Tests Test 09/18/16 19:10 Basophils # 0.010^3/ul Basophils % 0.3% Eosinophils # 0.010^3/ul Eosinophils % 0.3% Hematocrit 37.6% Hemoglobin 11.6g/dl Lymphocytes # 2.510^3/ul Lymphocytes % 28.5% Mean Corpuscular Hemoglobin 26.6pg Mean Corpuscular Hemoglobin Concent 30.9g/dl Mean Corpuscular Volume 86.2fl Mean Platelet Volume 9.7fl Monocytes # 0.410^3/ul Monocytes % 4.4% Neutrophils # 5.710^3/ul Neutrophils % 66.3% Nucleated Red Blood Cells # 0.010^3/ul Nucleated Red Blood Cells % 0.0/100WBC Platelet Count 68514^3/UL Red Blood Count 4.3610^6/ul Red Cell Distribution Width 13.2% White Blood Count 8.610^3/ul (CAYDEN PAIGE PA-C) Procedures/MDM Ultrasound shows intrauterine 5 week 1 day with heart activity with visible pole. There is no acute abnormalities noted no evidence of adnexal masses or . Patient was stable throughout the ER course. Urine and hCG and Rh status pending at time of dictation signed out to nurse practitioner anita supervising ER physician. Patient currently has vaginal bleeding of uncertain etiology with no evidence to suggest ectopic , acute abdomen, additional complications presents here because of vaginal bleeding or abdominal pain. (MARTIR ROLDAN MD) Patient was signed out to me by Dr. Roldan at 8 PM pending Rh status. Patient was noted to be O+. Patient does not need RhoGam at this time. Patient's diagnosis is most consistent with intrauterine . DISCHARGE: At this time, patient is stable for discharge and outpatient management. I have instructed the patient to follow-up with his/her primary care physician/OBGYN in 1-2 days. Patient provided with referral list I have discussed with the patient the possibility of needing to see a specialist for further workup and imaging studies if symptoms persist. I have instructed the patient to promptly return to the ER for any new or worsening symptoms including increased pain, fever, nausea, vomiting, weakness or LOC. The patient and/or family expressed understanding of and agreement with this plan. All questions were answered. Home care instructions were provided. (CAYDEN PAIGE PA-C) Departure Diagnosis: Primary Impression: Vaginal bleeding in patient at less than 20 weeks ges... Condition: Stable Patient Instructions: Bleeding During Early Referrals: [facility] [place] [id number] [facility] [address] [place] [address] OFFICE FAX ARLEEN MONDRAGON [address] [place] [place] [id number] [facility] [id number] [place] [phone] HARRIS, HESHMAT [id number] [facility], [address], [place] [address] DR MCGUIRE, [facility] [address] [place] [address] [facility] [address] [place] [address] [facility], [facility] [id number] - DR VIRK, CINDY [address], [place] [address] DR VITAL, ELIZABETH [address] [facility], [place] [address] DR DUKES, [facility] [address] [place], [place] [id number] Additional Instructions: See OB for follow-up. Normal-appearing seen today. Recheck for worsening bleeding, pain, fevers, new or worsening symptoms. MARTIR ROLDAN MD Sep 18, 2016 20:01 CAYDEN PAIGE PA-C Sep 18, 2016 20:43
[2016-09-18 20:04] LABS: BASOPHILS % 0.3 % (0.0-2.0); EOSINOPHILS % 0.3 % (0.0-7.0); HEMATOCRIT 37.6 % (37.0-47.0); HEMOGLOBIN 11.6 g/dl (12.0-16.0); LYMPHOCYTES # 2.5 10^3/ul (0.8-2.9); LYMPHOCYTES % 28.5 % (15.0-51.0); MEAN CORPUSCULAR HEMOGLOBIN 26.6 pg (29.0-33.0); MEAN CORPUSCULAR HGB CONC 30.9 g/dl (32.0-37.0); MEAN CORPUSCULAR VOLUME 86.2 fl (82.0-101.0); MEAN PLATELET VOLUME 9.7 fl (7.4-10.4); MONOCYTE # 0.4 10^3/ul (0.3-0.9); MONOCYTES % 4.4 % (0.0-11.0); NEUTROPHIL # 5.7 10^3/ul (1.6-7.5); NEUTROPHILS % 66.3 % (39.0-77.0); PLATELET COUNT 259 10^3/UL (140-415); RED BLOOD COUNT 4.36 10^6/ul (4.20-5.40); RED CELL DISTRIBUTION WIDTH 13.2 % (11.5-14.5); WHITE BLOOD COUNT 8.6 10^3/ul (4.8-10.8)
[2016-09-18 20:48] VITALS: BP 122/68; PULSE 88; RESP 18; TEMP 98.6
== END 2016-09-18 20:55 | disposition home or self-care (01) ==
LOC: FTE 17:44
DX: O20.9 Hemorrhage in early pregnancy, unspecified (principal); Z3A.01 Less than 8 weeks gestation of pregnancy; Z87.891 Personal history of nicotine dependence
CPT/HCPCS: 36415; 76801; 76817; 84702; 85025; 86900; 86901

== ENCOUNTER 2016-09-23 18:11 | Emergency (ER) | payer BC, OTHER ==
[~2016-09-23] VITALS: Ht 165.1 cm; Wt 100.0 kg
[2016-09-23 18:16] VITALS: Ht 165.1 cm; Wt 100.0 kg
[2016-09-23] MEDS ORDERED: SOD CHLORIDE 0.9% 1,000 ML IV STA (19:31)
[2016-09-23] MEDS ORDERED: ONDANSETRON 4 MG INJ IV STA (19:31)
--- NOTE | 2016-09-23 19:31 | ERD ---
ER Documentation Chief Complaint Date/Time DATE: 09/23/16 TIME: 19:29 Chief Complaint DIZZINESS AND VOMITING HPI 21-year-old otherwise healthy female presents to the emergency department complaining of nausea, dizziness, and morning sickness for the past 3 days. Patient states that she is currently 2 months . Patient states she vomited 3 times a day and currently feels nauseous but does not feel dizzy upon arrival. Patient has a history of anxiety and states that her dizzy spell was similar to an anxiety attack. Patient states the episode occurred while walking outside today. This is her first and she has her first appointment with [facility] specialist scheduled for next week. Patient does note slight incontinence recently but denies any dysuria or hematuria. She denies any loss of consciousness, fever, chills, abdominal pain or cramping, vaginal discharge or vaginal bleeding. Patient denies any recent travel, surgery, calf swelling or redness, or shortness of breath. ROS All systems reviewed and are negative except as per history of present illness. Medications Home Meds Active Scripts Ondansetron (Zofran Odt) 4 Mg Tab.rapdis, 4 MG PO Q8 for 10 Days Prov:MALLORY WOODSON PA-C 09/23/16 Doxylamine/Pyridoxine Hcl (RUMA BANUELOS 10-10 MG TABLET) 1 Each Tablet., 1 TAB PO BID for 28 Days, TAB Prov:MALLORY WOODSON PA-C 09/23/16 Multivit/Min/Fol Ac/Iron/Pren* ( S*) 1 Tab Tab, 1 TAB PO DAILY, #100 TAB Prov:MARTIR RODRIGUEZ MD 09/18/16 Multivit/Min/Fol Ac/Iron/Pren* ( S*) 1 Tab Tab, 1 TAB PO DAILY, #30 TAB Prov:WOODROW SANZ PA-C 09/13/16 Hydrocortisone* Topical (Hydrocortisone* Topical) 2.5%-28.3 Gm Cream..g., 1 APPLIC TOP BID, #1 TUB Prov:ANASTASIA BUSH PA-C 08/02/16 Famotidine* (Pepcid*) 20 Mg Tablet, 20 MG PO BID for 14 Days, TAB Prov:ANASTASIA BUSH PA-C 08/02/16 Diphenhydramine Hcl* (Benadryl*) 25 Mg Cap, 25 MG PO Q6, #30 CAP Prov:ANASTASIA BUSH PA-C 08/02/16 Prednisone* (Prednisone*) 20 Mg Tab, 40 MG PO DAILY for 4 Days, TAB Prov:ANASTASIA BUSH PA-C 08/02/16 Ondansetron (Ondansetron Odt) 4 Mg Tab.rapdis, 4 MG PO Q6H Y for NAUSEA AND/OR VOMITING, #10 TAB Prov:ESSIE,FELISA DO 07/31/16 Ciprofloxacin Hcl* (Ciprofloxacin Hcl*) 500 Mg Tablet, 500 MG PO BID for 3 Days , TAB Prov:JLUIS NAVARRETE 07/27/16 Diphenhydramine Hcl* (Benadryl*) 25 Mg Cap, 25 MG PO Q6 Y for ITCHING/RASH, #30 TAB Prov:ARYAN MORENO PA-C 04/04/16 Allergies Allergies: Coded Allergies: amoxicillin (Verified Allergy, Unknown, 04/04/16) PMhx/Soc History of Surgery: No Anesthesia Reaction: No Hx Neurological Disorder: No Hx Respiratory Disorders: No (strep throat) Hx Cardiac Disorders: No Hx Psychiatric Problems: No Hx Miscellaneous Medical Probl: No Hx Alcohol Use: No (socially) Hx Substance Use: No (marijuana) Hx Tobacco Use: No (quit) Smoking Status: Former smoker Physical Exam Vitals Vital Signs Date Time Temp Pulse Resp B/P Pulse Ox O2 Delivery O2 Flow Rate FiO2 09/23/16 18:16 98.1 90 18 139/89 99 Physical Exam Const: Obese, well-nourished, in no acute distress Head: Atraumatic Eyes: Normal Conjunctiva ENT: Normal External Ears, Nose and Mouth. Neck: Full range of motion..~ No meningismus. Resp: Clear to auscultation bilaterally Cardio: Regular rate and rhythm, no murmurs Abd: Soft, non tender, non distended. Normal bowel sounds Skin: No petechiae or rashes Back: No midline or flank tenderness Ext: No cyanosis, or edema Neur: Awake and alert. Gait steady. Cranial nerves II through XII intact. Psych: Normal Mood and Affect Results 24 hrs Laboratory Tests Test 09/23/16 19:54 09/23/16 19:59 Bedside Glucose 73mg/dL Urine Bilirubin NEGATIVE Urine Clarity CLEAR Urine Color LT. YELLOW Urine Glucose NEGATIVE% Urine Hemoglobin NEGATIVE Urine Ketones NEGATIVE Urine Leukocyte Esterase NEGATIVE Urine Nitrite NEGATIVE Urine Specific [place] 1.010 Urine Total Protein NEGATIVE Urine Urobilinogen 0.2 E.U./dL Urine pH 7.0 Current Medications Medications (Trade) Dose Ordered Sig/Archana Route PRN Reason Start Time Stop Time Status Last Admin Dose Admin Sodium Chloride (NS) 1,000 ml @ 1,000 mls/hr Q1H STAT IV 09/23/16 19:31 09/23/16 20:30 DC 09/23/16 19:56 Ondansetron HCl (Zofran Inj) 4 mg ONCE STAT IV 09/23/16 19:31 09/23/16 19:34 DC 09/23/16 19:55 Procedures/MDM EKG: Rate/Rhythm: Normal Sinus Rhythm QRS, ST, T-waves: No changes consistent w/ acute ischemia Impression: No evidence of ischemia or arrhythmia Patient received a bolus of fluids as well as Zofran while in the emergency department and reports significant improvement of symptoms. 21-year-old, female currently estimated 2 months gestation, presents with dizziness and nausea 3 days. Patient denied any abdominal pain or cramping and denies any vaginal bleeding. Patient denies any fever, chills, or loss of consciousness. Vital signs reviewed, patient afebrile, normotensive, non- tachycardic, not hypoxic. EKG performed and there is no evidence of acute ischemia or arrhythmia. Patient denies any recent travel, surgery, calf swelling or redness, or shortness of breath. Patient's symptoms significantly improved post treatment in the emergency room. At this time I have low suspicion for spontaneous , acute coronary syndrome, pelvic inflammatory disease, DVT, PE, serious systemic bacterial infection, hyperglycemia, or urinary tract infection. Patient to keep scheduled appointment with [facility] specialist. I will provide the patient with a prescription for an anti-medic until she can be seen by primary care. Based on patient's history of present illness and physical examination the decision was made to discharge. The patient was re-evaluated after ED treatment and stabilizing measures, and symptoms have improved. There is no evidence of life threatening injuries or illnesses at this time. On re-examination, patient resting in no distress, stable vital signs, reports feeling better and safe for discharge with outpatient follow up with PMD in 1-2 days. Patient given return precautions. Departure Diagnosis: Primary Impression: Nausea/vomiting in Additional Impression: Dizziness MALLORY WOODSON PA-C Sep 23, 2016 19:31
[2016-09-23 20:14] LABS: ADD UMIC NO; URINE BILIRUBIN (Dip) NEGATIVE (NEGATIVE); URINE BLOOD (Dip) NEGATIVE (NEGATIVE); URINE COLOR LT. YELLOW (YELLOW); URINE GLUCOSE (Dip) NEGATIVE (NEGATIVE); URINE KETONES (Dip) NEGATIVE (NEGATIVE); URINE LEUKOCYTE ESTERASE (Dip) NEGATIVE (NEGATIVE); URINE NITRITE (Dip) NEGATIVE (NEGATIVE); URINE TOTAL PROTEIN (Dip) NEGATIVE (NEGATIVE); URINE UROBILINOGEN (Dip) 0.2 E.U./dL (0.1-1.0)
[2016-09-23] MEDS ORDERED: ONDA4TAB11 PO (20:33)
[2016-09-23] MEDS ORDERED: DOXY1TAB3 PO (20:33)
[2016-09-23 21:21] VITALS: BP 125/69; PULSE 89; RESP 18; TEMP 98.1
== END 2016-09-23 21:25 | disposition home or self-care (01) ==
LOC: FTE 18:11
DX: O21.9 Vomiting of pregnancy, unspecified (principal); O99.89 Other specified diseases and conditions complicating pregnancy, childbirth and the puerperium; R42 Dizziness and giddiness; Z3A.08 8 weeks gestation of pregnancy; Z87.891 Personal history of nicotine dependence
CPT/HCPCS: 36415; 81003; 82962; 96374; 99284; J2405; J7030; 93005

== ENCOUNTER 2019-03-29 09:30 | Emergency (ER) | payer BC, MEDICAID, OTHER ==
[2016-09-23 18:16] VITALS: Wt 112.0 kg
[~2019-03-29] VITALS: Wt 112.0 kg
[~2019-03-29 09:30] MED LIST changes: +CLIN300C10 PO; +DOXY1TAB3 PO; -FAMO-18 PO; +FAMO-96 PO; +IBUP800T48 PO; +ONDA4TAB11 PO; +POLY10DR19 RIGHT EYE
[2019-03-29 09:41] VITALS: BP 130/78; PULSE 90; RESP 18
== END 2019-03-29 10:57 | disposition home or self-care (01) ==
LOC: FTE 09:30
DX: K12.1 Other forms of stomatitis (principal)
CPT/HCPCS: 99283